=== PATIENT | female | born 1955 | race Caucasian/White ===

== ENCOUNTER 2023-08-26 08:57 | Outpatient (RCR) | payer OTHER, SELFPAY | END 2023-08-26 23:59 | disposition home or self-care (01) | LOC: ROT 08:57 | PROVIDERS: ATTENDING PHYSICIAN Physician Assistant Surgical; FAMILY PHYSICIAN Nurse Practitioner Adult Health | DX: S52.531D Colles' fracture of right radius, subsequent encounter for closed fracture with routine healing (principal); Z73.6 Limitation of activities due to disability | CPT/HCPCS: 97010; 97022; 97110; 97140; 97166; 97535 ==

== ENCOUNTER 2023-09-09 10:02 | Outpatient (RCR) | payer OTHER, SELFPAY | END 2023-09-09 23:59 | disposition home or self-care (01) | LOC: ROT 10:02 | PROVIDERS: ATTENDING PHYSICIAN Physician Assistant Surgical; FAMILY PHYSICIAN Nurse Practitioner Adult Health | DX: S52.531D Colles' fracture of right radius, subsequent encounter for closed fracture with routine healing (principal); Z73.6 Limitation of activities due to disability | CPT/HCPCS: 97022; 97110; 97140 ==

== ENCOUNTER 2023-12-10 04:02 | Emergency (ER) | payer OTHER, SELFPAY ==
[2023-12-10 04:03] VITALS: BP 145/85
[2023-12-10 04:40] VITALS: BMI 26.7
[2023-12-10 04:42] VITALS: BP 121/88
[2023-12-10 04:58] LABS: % Basophils 1.1 % (0-2); % Eosinophils 4.6 % (0-6); % Immature Granulocytes 0.3 % (0-0.5); % Lymphocytes 38.2 % (20.5-51.1); % Neutrophils 47.8 % (42.2-75.2); Absolute Eosinophils 0.2 10^3/uL (0-0.7); Absolute Lymphocytes 1.3 10^3/uL (1.2-3.4); Absolute Monocytes 0.3 10^3/uL (0.1-0.6); Absolute Neutrophils 1.7 10^3/uL (1.4-6.5); Hemoglobin 11.6 g/dL (12.0-16.0); Mean Corp Hgb Conc. 33.1 g/dL (33.0-37.0); Mean Corpuscular Hgb 28.7 pg (27.0-31.0); Mean Corpuscular Volume 86.6 fL (81.0-99.0); Mean Platelet Volume 9.7 fL (7.4-10.4); Nucleated Red Blood Cells % 0 %; Platelet Count 193 10^3/uL (130-400); Red Blood Cell Count 4.04 10^6/uL (4.20-5.40); Red Cell Dist. Width 13.4 % (11.5-14.5); White Blood Cell Count 3.5 10^3/uL (4.8-10.8)
[2023-12-10 05:21] LABS: ALT (SGPT) 19 U/L (0-35); AST (SGOT) 22 U/L (14-36); Albumin 3.3 g/dl (3.5-5.0); Alkaline Phosphatase 90 U/L (38-126); Blood Urea Nitrogen 17 mg/dl (7-17); Calcium 9.9 mg/dl (8.4-10.2); Carbon Dioxide 28 mmol/L (22-30); Chloride 107 mmol/L (98-107); Glucose 89 mg/dl (70-99); Potassium 4.2 mmol/L (3.5-5.1); Sodium 135 mmol/L (135-145); Total Bilirubin 0.3 mg/dl (0.2-1.3); Total Protein 5.6 g/dl (6.3-8.2); eGFR > 60.00
[2023-12-10 05:48] VITALS: BP 112/77
[2023-12-10 06:18] VITALS: BP 110/58
[2023-12-10 07:00] VITALS: BP 117/71
--- NOTE | 2023-12-10 07:12 | ED.GENMED ---
History of Present Illness
General
Chief Complaint: Vaginal Bleeding
Source: patient
Exam Limitations: none
Time Seen by Provider: 12/10/23 06:04
Nursing documentation reviewed up to this point in time: agreed with
Travel History
Have you had any contact with someone who has COVID-19?: No
Do you have any symptoms of coronavirus? Fever > 100 degrees, chills, cough, shortness of breath, sore throat, loss of taste or smell, muscle aches, or headache?: No
History of Present Illness
History of Present Illness:
Patient with history of paroxysmal atrial fibrillation on Eliquis, presents to ED after waking up this morning around 4 AM and when she went to restroom, she noted bright red blood with urination. Since then, patient has gone to the restroom
multiple times, and each time, blood in urine has lessened. Denies abdominal pain. Denies nausea or vomiting. Denies dizziness. Denies shortness of breath. Denies previous history of similar symptoms. Patient has history of hysterectomy 20
years ago secondary to endometriosis. Patient states that she does still have her ovaries intact. Patient states that she had also been taking Celebrex as well as Eliquis, but was discontinued 1 week ago.
Past History
Past History
ED Past Medical History: Hypothyroidism and Psychiatric (lexapro)
ED Past Surgical History: Gynecological and Orthopedic
Social History
Tobacco: Non-smoker
Alcohol: Occasional
Drug: None
Personal:
Living: with family
Employment: Employed
Family History
Family History: Diabetes and Other (Coronary artery disease in her grandmother, atrial fibrillation her mother and sister)
Review of Systems
Review of Systems
Allergies reviewed?: Yes
All Other Systems: ROS reviewed and negative except as documented in HPI and ROS
Constitutional: Reports no symptoms; Denies fatigue
Respiratory: Reports no symptoms
Cardiac: Reports no symptoms
ABD/GI: Reports no symptoms; Denies abdominal pain or nausea
: Reports bleeding
Musculoskeletal: Reports no symptoms
Skin: Reports no symptoms
Neurological: Reports no symptoms; Denies dizzy or weakness
Phy Exam
Physical Exam
Physical Exam:
Physical Exam
General: no apparent distress, not acutely ill. afebrile
Head: nc/at. eomi
Neck: supple. normal range of motion
Abdomen: normal bowel sounds. not tender.
Neuro: alert and oriented. no focal neurological deficits
Skin: no rash
Psychiatric: well kept. interactive and cooperative
Extremities: no edema. no calf tenderness.
Course
Orders/Labs/Results
Orders:
Orders
12/10/23 04:47
CMP [Comprehensive Metabolic Panel] Urgent
Complete Blood Count/With Diff Urgent
12/10/23 06:17
Urinalysis Reflex To Culture Urgent
Date Specimen was Collected: 12/10/23
Time Specimen was Collected: 04:52
Urine Microscopic Reflex Cult Urgent
Urine Culture Urgent
DANAY Source: U
Specimen Description:
Date Specimen was Collected: 12/10/23
Time Specimen was Collected: 04:52
12/10/23 07:09
0.9% Sodium Chloride 500 ml [Nss] 500 ml IV BOLUS
Abnormal Lab Results
12/10/23 12/10/23
04:47 06:17
WBC 3.5 L 10^3/uL
(4.8-10.8)
RBC 4.04 L 10^6/uL
(4.20-5.40)
Hgb 11.6 L g/dL
(12.0-16.0)
Hct 35.0 L %
(37.0-47.0)
Total Protein 5.6 L g/dl
(6.3-8.2)
Albumin 3.3 L g/dl
(3.5-5.0)
Urine Ketones Trace A
(Negative)
Ur Occult Blood Reflex 4+ A
(Negative)
Urine Bilirubin 1+ A
(Negative)
Leukocyte Esterase Rfl 1+ A
(Negative)
Urine RBC 50-60 A /HPF
(0-2)
Urine WBC (Reflex) 16-20 A /HPF
(0-5)
Urine Bacteria (Reflex) Few A
(Negative)
Urine Albumin (Reflex) 1+ A
(Neg - Trace)
12/10/23 04:47
12/10/23 04:47
Vital Signs
Initial and Last Documented VS:
Initial Vital Signs
Temp Pulse Resp BP Pulse Ox
98 F 92 24 145/85 100
12/10/23 04:03 12/10/23 04:03 12/10/23 04:03 12/10/23 04:03 12/10/23 04:03
Last Documented Vital Signs
Temp Pulse Resp BP Pulse Ox
98 F 75 18 115/71 99
12/10/23 04:03 12/10/23 08:27 12/10/23 08:27 12/10/23 08:27 12/10/23 08:27
MDM/Problems Addressed
MDM/Problems Addressed:
H/H stable. Pt reports continual clearance of bloody during observation in ED, without any abdominal discomfort.
Discussed treatment options, including pelvic US. However, patient would like to defer US until re-evaluation with her resource recovery engineer physician, which I believe is reasonable.
UA noted and discussed with patient. As pt is not susceptible to UTI nor having any urinary complaints, will withhold abx until urine cx becomes available.
Pt given precautions to return, i.e. fever/worsening bleeding/dizziness/weakness
*Critical Care Note
Total Time (30-74mins, 75-104mins- exclusive of procedures): Not Applicable
ED Attending Note
-
Portions of this chart may have been created with voice recognition software.� Occasional wrong word or��sound alike� substitutions may have occurred due to the inherent limitations of voice recognition software.
Discharge Plan
Departure
Patient Disposition: Home (Routine Discharge)
Date of Disposition: 12/10/23
Time of Disposition: 08:00
Patient with high blood pressure during this ER visit?: Yes
Condition: Good
Discharge Problem:
Abnormal vaginal bleeding
Instructions: Bleeding Between Periods
Prescriptions:
No Action
escitalopram oxalate 20 MG tablet
10 mg PO HS
cyanocobalamin (vitamin B-12) [Vitamin B-12] 500 MCG tablet
1,000 mcg PO DAILY@1200
cholecalciferol (vitamin D3) 1,000 UNITS tablet
1,000 units PO DAILY@1200
liothyronine 5 MICROGRAM tablet
5 mcg PO DAILY
levothyroxine 25 MCG tablet
50 mcg PO DAILY
Eliquis 5 MG tablet
5 mg PO BID Qty: 60 0RF
cetirizine [Zyrtec] 5 MG tablet
5 mg PO DAILY
magnesium citrate 125 MG capsule
250 mg PO HS
nadolol 20 mg Tablet
20 mg PO DAILY
rosuvastatin [Crestor] 10 mg Tablet
10 mg PO HS
polyethylene glycol 3350 [Miralax] 17 gram Powder In Packet
17 g PO HS
Wegovy 0.25 mg/0.5 mL Pen Injector
0.25 mg SC QWEEK
Referrals:
Kira Root CRNP [Family Provider] -
Activity Restrictions/Additional Instructions:
As discussed, please follow up with your resource recovery engineer physician for further evaluation and treatment. In the meantime, please withhold Eliquis x 24 hrs. Please return to ED with worsening symptoms, i.e. fever/increased bleeding/dizziness/weakness/sob.
Interventions
Interventions:
*Risk Screen - Suicide Last Done: 12/10/23 04:03
*General Assessment Last Done: 12/10/23 04:40
*Neglect/Abuse Screening Last Done: 12/10/23 04:03
ED- Fall Risk Assessment Last Done: 12/10/23 04:40
*ED COVID-19 Vaccine History Last Done: 12/10/23 04:40
*Nursing Disposition Last Done: 12/10/23 08:32
ED-Female Genitourinary Assessment Last Done: 12/10/23 04:40
Discharge Date and Time
Discharge Date/Time: 12/10/23 08:40
Print Language: PASHTO
[2023-12-10 07:24] LABS: Urine Albumin 1+ (Neg - Trace); Urine Bilirubin 1+ (Negative); Urine Character Very Cloudy (Clear); Urine Color Amber; Urine Glucose Negative (Negative); Urine Ketone Trace (Negative); Urine Leukocyte 1+ (Negative); Urine Nitrite Negative (Negative); Urine Occult Blood 4+ (Negative); Urine Specific Gravity 1.015 (<1.030); Urine Urobilinogen Negative (Neg - 1+)
[2023-12-10 07:45] LABS: Urine Squamous Cell 0-2 /LPF (Few)
[2023-12-10 07:46] LABS: Urine Bacteria Few (Negative)
[2023-12-10 07:48] LABS: Urine White Cell 16-20 /HPF (0-5)
[2023-12-10 07:50] LABS: Urine Red Blood Cell 50-60 /HPF (0-2)
[2023-12-10 08:27] VITALS: BP 115/71
== END 2023-12-10 08:40 | disposition home or self-care (01) ==
LOC: EMR 04:02
PROVIDERS: Emergency Medicine; EMERGENCY PHYSICIAN Emergency Medicine; FAMILY PHYSICIAN Nurse Practitioner Adult Health
DX: N93.9 Abnormal uterine and vaginal bleeding, unspecified (principal); R03.0 Elevated blood-pressure reading, without diagnosis of hypertension; Z79.01 Long term (current) use of anticoagulants
CPT/HCPCS: 99283; 80053; 81003; 81015; 85025; 87086

== ENCOUNTER 2024-04-01 18:57 | Emergency (ER) | payer OTHER, SELFPAY ==
[2024-04-01 19:06] VITALS: BP 118/78
[2024-04-01 21:09] VITALS: BP 107/84
--- NOTE | 2024-04-02 00:32 | ED.GENMED ---
History of Present Illness
General
Chief Complaint: Head Injury
Source: patient
Exam Limitations: none
Time Seen by Provider: 04/01/24 20:15
Nursing documentation reviewed up to this point in time: agreed with
History of Present Illness
History of Present Illness:
Patient states a cable box fell and hit her on the back of the head. No LOC. Developed a hematoma to posterior scalp. Currently on Eliquis. Brought to ED by spouse for eval.
Past History
Past History
ED Past Medical History: Hypothyroidism and Psychiatric (lexapro)
ED Past Surgical History: Gynecological and Orthopedic
Social History
Tobacco: Non-smoker
Alcohol: Occasional
Drug: None
Personal:
Living: with family
Employment: Employed
Family History
Family History: Diabetes and Other (Coronary artery disease in her grandmother, atrial fibrillation her mother and sister)
Review of Systems
Review of Systems
Allergies reviewed?: Yes
All Other Systems: ROS reviewed and negative except as documented in HPI and ROS
Constitutional: Reports no symptoms
EENT: Reports no symptoms
Respiratory: Reports no symptoms
Cardiac: Reports no symptoms
ABD/GI: Reports no symptoms
Musculoskeletal: Reports no symptoms
Skin: Reports other (small hematoma to posterior scalp)
Neurological: Reports headache
Psychiatric: Reports no symptoms
Phy Exam
General Physical Exam
General Presentation: well appearing and no apparent distress
General age: appears stated age
General Skin: warm and dry
General Habitus: normal
General Mental: alert
ENT Exam
ENT Exam: EOMI and TM's normal
Eye Exam
Eye Exam: PERRL, EOMI, conjunctiva normal and globe normal
Neurological Exam
Neurological Exam: alert, oriented x3, no motor deficits, no sensory deficits, speech normal and normal gait
Musculoskeletal Exam
Musculoskeletal Exam: full ROM
Skin Exam
Skin Exam: normal color, warm/dry, no rash and other (small hematoma to posterior scalp.)
Psychiatric Exam
Psychiatric Exam: normal mood/affect
Course
Orders/Labs/Results
Orders:
Orders
04/01/24 19:08
CT Head W/o Iv Contrast Urgent
Comment:
Reason For Exam: head strike on eliquis
Vital Signs
Initial and Last Documented VS:
Initial Vital Signs
Temp Pulse Resp BP Pulse Ox
98.2 F 97 18 118/78 97
04/01/24 19:06 04/01/24 19:06 04/01/24 19:06 04/01/24 19:06 04/01/24 19:06
Last Documented Vital Signs
Temp Pulse Resp BP Pulse Ox
98.2 F 78 18 107/84 97
04/01/24 19:06 04/01/24 21:09 04/01/24 21:09 04/01/24 21:09 04/01/24 19:06
*Radiology
Radiology exam reviewed: radiology read reviewed
*Pulse Oximetry
Patient hypoxic: no
*Critical Care Note
Total Time (30-74mins, 75-104mins- exclusive of procedures): Not Applicable
ED Attending Note
-
Portions of this chart may have been created with voice recognition software.� Occasional wrong word or��sound alike� substitutions may have occurred due to the inherent limitations of voice recognition software.
Discharge Plan
Departure
Patient Disposition: Home (Routine Discharge)
Date of Disposition: 04/01/24
Time of Disposition: 20:54
Patient with high blood pressure during this ER visit?: No
Condition: Good
Covid-19: Not Applicable
Discharge Problem:
Head injury
Instructions: Head Injury in Adults (DC), Contusion (DC)
Prescriptions:
No Action
escitalopram oxalate 20 MG tablet
10 mg PO HS
cyanocobalamin (vitamin B-12) [Vitamin B-12] 500 MCG tablet
1,000 mcg PO DAILY@1200
cholecalciferol (vitamin D3) 1,000 UNITS tablet
1,000 units PO DAILY@1200
liothyronine 5 MICROGRAM tablet
5 mcg PO DAILY
levothyroxine 25 MCG tablet
50 mcg PO DAILY
Eliquis 5 MG tablet
5 mg PO BID Qty: 60 0RF
cetirizine [Zyrtec] 5 MG tablet
5 mg PO DAILY
magnesium citrate 125 MG capsule
250 mg PO HS
nadolol 20 mg Tablet
20 mg PO DAILY
rosuvastatin [Crestor] 10 mg Tablet
10 mg PO HS
polyethylene glycol 3350 [Miralax] 17 gram Powder In Packet
17 g PO HS
Wegovy 0.25 mg/0.5 mL Pen Injector
0.25 mg SC QWEEK
Referrals:
Kira Root CRNP [Family Provider] - Follow up in 2-3 days
Interventions
Interventions:
*Risk Screen - Suicide Last Done: 04/01/24 19:06
*General Assessment Last Done: 04/01/24 19:06
*Neglect/Abuse Screening Last Done: 04/01/24 19:06
ED- Fall Risk Assessment Last Done: 04/01/24 21:09
*ED COVID-19 Vaccine History Last Done: 04/01/24 21:09
*Nursing Disposition Last Done: 04/01/24 21:09
ED- Neurological Assessment Last Done: 04/01/24 20:05
ED-Skin Assessment Last Done: 04/01/24 20:05
Discharge Date and Time
Discharge Date/Time: 04/01/24 21:12
Print Language: SYRIAC
== END 2024-04-01 21:12 | disposition home or self-care (01) ==
LOC: EMR 18:57
PROVIDERS: EMERGENCY PHYSICIAN Emergency Medicine; FAMILY PHYSICIAN Nurse Practitioner Adult Health
DX: S09.90XA Unspecified injury of head, initial encounter (principal); W20.8XXA Other cause of strike by thrown, projected or falling object, initial encounter; Z79.01 Long term (current) use of anticoagulants
CPT/HCPCS: 99284; 70450

== ENCOUNTER → 2024-07-27 11:15 | Outpatient (REF) | payer OTHER, SELFPAY | LOC: WDC 11:15 | PROVIDERS: ATTENDING PHYSICIAN Nurse Practitioner Adult Health | DX: Z12.31 Encounter for screening mammogram for malignant neoplasm of breast (principal) | CPT/HCPCS: 77063; 77067 ==

== ENCOUNTER → 2025-01-18 12:50 | Outpatient (REF) | payer OTHER, SELFPAY | LOC: RCS 12:50 | PROVIDERS: ATTENDING PHYSICIAN Nurse Practitioner | DX: I48.0 Paroxysmal atrial fibrillation (principal); R07.89 Other chest pain; R53.83 Other fatigue | CPT/HCPCS: 93017 ==

== ENCOUNTER → 2025-01-27 08:07 | Outpatient (REF) | payer OTHER, SELFPAY | LOC: RCS 08:07 | PROVIDERS: ATTENDING PHYSICIAN Nurse Practitioner; FAMILY PHYSICIAN Nurse Practitioner Adult Health | DX: I48.0 Paroxysmal atrial fibrillation (principal); R07.89 Other chest pain; R53.83 Other fatigue | CPT/HCPCS: 93306 ==

== ENCOUNTER → 2025-03-01 12:52 | Outpatient (REF) | payer OTHER, SELFPAY | LOC: RAD 12:52 | PROVIDERS: ATTENDING PHYSICIAN Internal Medicine; FAMILY PHYSICIAN Nurse Practitioner Adult Health | DX: E21.3 Hyperparathyroidism, unspecified (principal); E03.9 Hypothyroidism, unspecified; M81.0 Age-related osteoporosis without current pathological fracture | CPT/HCPCS: 77080 ==

== ENCOUNTER 2025-06-19 18:26 | Emergency (ER) | payer OTHER, SELFPAY ==
[2025-06-19 18:28] VITALS: BP 149/89
--- NOTE | 2025-06-19 18:53 | ED.GENMED ---
History of Present Illness
General
Chief Complaint: Abdominal Symptoms
Source: patient and spouse
Time Seen by Provider: 06/19/25 18:42
History of Present Illness
History of Present Illness:
Note:
CHIEF COMPLAINT(S)
Dehydration and migraine headache secondary to vomiting.
HISTORY OF PRESENT ILLNESS
The patient is a 70-year-old female with a past medical history significant for bariatric surgery and multiple orthopedic surgeries. She presents with severe dehydration and a migraine headache following episodes of vomiting and diarrhea. The onset
of symptoms began recently, initially starting with stomach cramping. The patient reports that her tongue feels enlarged and her mouth has been exceedingly dry. She describes her migraine as a result of continuous vomiting.
The patient mentions that her granddaughter recently experienced similar symptoms but has not confirmed if it was the same illness. She denies eating anything unusual or being around anyone unwell, aside from her granddaughter. The patient notes
significant nausea and describes pain in the lower abdominal region upon palpation, along with the sensation that vomiting involves expelling gastric lining. She denies hematochezia or hematemesis but indicates experiencing both vomiting and
diarrhea.
PAST MEDICAL AND SURGICAL HISTORY
The patient has a history of bariatric surgery performed four years ago and has undergone four hip replacement surgeries in the past. She also suffers from asthma.
SOCIAL DETERMINANTS AFFECTING HEALTH
The patient mentions feeling �like a wet rag or something� and expresses concern about hydration.
ALLERGIES
The patient is allergic to procaine and sulfa-based drugs.
MEDICATIONS
The patient has taken Ondansetron for nausea.
REVIEW OF SYSTEMS
- Gastrointestinal: Significant nausea, vomiting, and diarrhea. Abdominal cramping noted.
- Neurological: Migraine headache reported.
- Constitutional: Dehydrated mouth, enlarged tongue sensation.
PHYSICAL EXAM
General: Alert, no acute distress.
Skin: Warm, dry.
Head: Normocephalic, atraumatic.
Neck: Supple, trachea midline.
Cardiovascular: Normal peripheral perfusion, no edema.
Respiratory: Respirations are non-labored.
Gastrointestinal: mild diffuse Abdominal tenderness; nausea and cramps present.
Back: Normal range of motion, normal alignment.
Musculoskeletal: Normal range of motion, normal strength.
Neurological: Alert and oriented to person, place, time, and situation, no focal neurological deficit observed.
Psychiatric: Cooperative, appropriate mood and affect.
PROBLEM LIST
Acute:
- Dehydration
- Migraine headache
- Nausea and vomiting
- Diarrhea
Chronic:
- Asthma
PLAN
The plan includes administering intravenous fluids to address dehydration and administering medications including metoclopramide (Reglan) in conjunction with diphenhydramine (Benadryl) to address both nausea and migraine symptoms. Laboratory studies
will be conducted to assess electrolyte status, focusing on potassium levels. The patient will be reassessed following these interventions to ensure symptom relief and improvement of hydration status.
DIFFERENTIAL DIAGNOSIS
The Differential Diagnosis includes, in no particular order and is not limited to:
- Viral gastroenteritis
- Food poisoning
- Medication-induced gastrointestinal upset
- Irritable bowel syndrome exacerbation
- Peptic ulcer disease
- Migraine-induced nausea and vomiting
- Gallbladder disease
- Gastroesophageal reflux disease
- Intestinal obstruction
- Electrolyte imbalance
CARE-UPDATE
06/19/25 - 23:35
Patient received two liters of IV fluids and reports feeling significantly better while now tolerating ice chips. Mild abdominal cramping persists. IV Tylenol has been administered, with plans for reassessment. Patient remains slightly tachycardic
at a heart rate of 115, though blood pressure is stable. There are no reported palpitations, and the patient expresses overall improvement. Monitoring will continue.
Disposition:
SUMMARY OF ENCOUNTER
The patient is a 70-year-old female who presented to the emergency department with severe dehydration, associated with intractable vomiting and diarrhea. Initially, she felt significantly dehydrated and complained of persistent gastrointestinal
symptoms. After the administration of two liters of intravenous fluids, her condition showed considerable improvement. The vomiting resolved, and she started tolerating ice chips and oral liquid intake. Mild intermittent abdominal cramping remains,
but overall her symptoms have reduced significantly. Considering the clinical presentation of diarrhea and vomiting, gastroenteritis was suspected.
EMERGENCY TREATMENTS ADMINISTERED
The patient was administered two liters of intravenous fluids to address dehydration.
REASSESSMENT
After treatment with IV fluids, the patient reported feeling much improved with resolved vomiting and stable oral liquid intake. Abdominal symptoms improved, with occasional mild cramping remaining.
INDEPENDENT REVIEW OF LABS AND INTERPRETATION OF TESTS
My independent review of CBC indicates normal white blood cells and hemoglobin levels.
My independent review of urinalysis shows 3+ ketones and 11-15 white cells, with negative nitrite.
My independent EKG interpretation indicates sinus tachycardia, with normal sinus rhythm observed despite the history of atrial fibrillation, fluctuating heart rate between 90 to 110 bpm.
MEDICATION RECONCILIATION
Ondansetron administered for nausea.
MEDICAL DECISION MAKING
-Complexity of Data Reviewed: Chronic conditions affecting care [Atrial fibrillation, Asthma, Bariatric surgery, Multiple orthopedic surgeries]. The differential diagnosis included viral gastroenteritis, food poisoning, medication-induced
gastrointestinal upset, irritable bowel syndrome exacerbation, peptic ulcer disease, migraine-induced nausea and vomiting, gallbladder disease, gastroesophageal reflux disease, intestinal obstruction, and electrolyte imbalance.
-Data:
Category 1:
I independently reviewed the patients CBC and urinalysis results.
An EKG was performed and interpreted to show sinus tachycardia.
-Risk:
Escalation of care including admission/observation was considered given the complexity and risk of the patients presenting complaint, exam findings, and her underlying comorbidities. However, ultimately the patient is deemed safe for outpatient
management with close follow up. The work-up is reassuring, does not reveal any acute life/organ threatening processes, and the patients symptoms are well controlled upon reevaluation. Reexamination is reassuring, vitals are stable, and the patient
is agreeable with discharge and reliable for follow-up.
DIAGNOSIS
Gastroenteritis (ICD-10: A09)
Past History
Past History
ED Past Medical History: Hypothyroidism and Psychiatric (lexapro)
ED Past Surgical History: Gynecological and Orthopedic
Social History
Tobacco: Non-smoker
Alcohol: Occasional
Drug: None
Personal:
Living: with family
Employment: Employed
Family History
Family History: Diabetes and Other (Coronary artery disease in her grandmother, atrial fibrillation her mother and sister)
Phy Exam
Physical Exam
Physical Exam:
.
Sepsis
Sepsis Screening
Sepsis Assessment: Sepsis Ruled Out
Sepsis Screen
Sepsis Screen: Sepsis Ruled Out
Date: 06/20/25
Time: 02:43
Course
Orders/Labs/Results
Orders:
Orders
06/19/25 18:49
0.9% Sodium Chloride 1000 ml [Nss] 1,000 ml IV BOLUS
Diphenhydramine [Benadryl] 25 mg IV NOW STA
Metoclopramide [Reglan] 10 mg IV NOW STA
06/19/25 19:19
Complete Blood Count/With Diff Urgent
Comprehensive Metabolic Panel Urgent
06/19/25 20:28
Urinalysis Reflex To Culture Urgent
Date Specimen was Collected: 06/19/25
Time Specimen was Collected: 20:23
Urine Microscopic Reflex Cult Urgent
Urine Culture Urgent
DANAY Source: U
Specimen Description:
Date Specimen was Collected: 06/19/25
Time Specimen was Collected: 20:23
06/19/25 22:41
Acetaminophen 1000MG/100Ml [Ofirmev] 1,000 mg in 100 ml IV ONCE
Acetaminophen IV Indication:: ED Narcotic Naive Pt-ONCE
06/19/25 23:04
Electrocardiogram (*1) Urgent
Reason for Study: Palpitations
EKG- Treatment ONCE
Abnormal Lab Results
06/19/25 06/19/25
19:19 20:28
MCHC 32.9 L g/dL
(33.0-37.0)
Absolute Neuts (auto) 6.7 H 10^3/uL
(1.4-6.5)
Absolute Lymphs (auto) 0.6 L 10^3/uL
(1.2-3.4)
Neutrophils % 88.0 H %
(42.2-75.2)
Lymphocytes % 8.4 L %
(20.5-51.1)
Glucose 109 H mg/dl
(70-99)
Urine Ketones 3+ A
(Negative)
Leukocyte Esterase Rfl 2+ A
(Negative)
Urine WBC (Reflex) 11-15 A /HPF
(0-5)
Urine Albumin (Reflex) 2+ A
(Neg - Trace)
06/19/25 19:19
06/19/25 19:19
Vital Signs
Pulse: 91
Initial and Last Documented VS:
Initial Vital Signs
Pulse Resp BP Pulse Ox
111 20 149/89 99
06/19/25 18:28 06/19/25 18:28 06/19/25 18:28 06/19/25 18:28
Last Documented Vital Signs
Temp Pulse Resp BP Pulse Ox
97.8 F 91 19 110/68 95
06/20/25 01:24 06/20/25 01:10 06/20/25 01:00 06/20/25 01:00 06/20/25 00:30
*Pulse Oximetry
SaO2: 99
Oxygen Mode of Delivery: Room air
Patient hypoxic: no
*Critical Care Note
Total Time (30-74mins, 75-104mins- exclusive of procedures): Not Applicable
ED Attending Note
-
Portions of this chart may have been created with voice recognition software.� Occasional wrong word or��sound alike� substitutions may have occurred due to the inherent limitations of voice recognition software.
Discharge Plan
Departure
Patient Disposition: Home (Routine Discharge)
Date of Disposition: 06/20/25
Time of Disposition: 01:10
Patient with high blood pressure during this ER visit?: No
Discharge Problem:
Vomiting, Diarrhea
Instructions: Diarrhea in teens and adults, Clear Liquid Diet, Dehydration, Adult (DC), Nausea and Vomiting, Adult (DC)
Prescriptions:
New
ondansetron HCl 4 mg tablet
4 mg PO Q8H PRN (Reason: nausea and vomiting) Qty: 14 0RF
No Action
escitalopram oxalate 20 MG tablet
10 mg PO HS
cyanocobalamin (vitamin B-12) [Vitamin B-12] 500 MCG tablet
1,000 mcg PO DAILY@1200
cholecalciferol (vitamin D3) 1,000 UNITS tablet
1,000 units PO DAILY@1200
liothyronine 5 MICROGRAM tablet
5 mcg PO DAILY
levothyroxine 25 MCG tablet
50 mcg PO DAILY
Eliquis 5 MG tablet
5 mg PO BID Qty: 60 0RF
cetirizine [Zyrtec] 5 MG tablet
5 mg PO DAILY
magnesium citrate 125 MG capsule
250 mg PO HS
nadolol 20 mg Tablet
20 mg PO DAILY
rosuvastatin [Crestor] 10 mg Tablet
10 mg PO HS
polyethylene glycol 3350 [Miralax] 17 gram Powder In Packet
17 g PO HS
Wegovy 0.25 mg/0.5 mL Pen Injector
0.25 mg SC QWEEK
Referrals:
Kira Root CRNP [Family Provider, Internal Medicine]
Activity Restrictions/Additional Instructions:
Please drink plenty fluids and advance diet slowly as discussed. Return immediately for vomiting blood, blood in stool, abdominal pain, fevers or any other concerns. Use Tylenol as needed for fever control. Please see your doctor in the next 3 to
5 days for follow-up and reevaluation.
Interventions
Interventions:
*Risk Screen - Suicide Last Done: 06/19/25 20:00
*General Assessment Last Done: 06/19/25 19:00
*Neglect/Abuse Screening Last Done: 06/19/25 20:00
*ED- Fall Risk Assessment Last Done: 06/19/25 19:00
*ED COVID-19 Vaccine History Last Done: 06/19/25 19:00
*ED Influenza Vaccine History Last Done: 06/19/25 19:00
*Nursing Disposition Last Done: 06/20/25 01:24
PL-Cjatid-Wupevrtmxq Assessment Last Done: 06/19/25 20:00
Discharge Date and Time
Discharge Date/Time: 06/20/25 01:27
Print Language: WELSH
[2025-06-19 19:00] VITALS: BMI 25.1
[2025-06-19] MEDS: BENADRYL 25 MG IV (19:06)
[2025-06-19] MEDS: REGLAN 10 MG IV (19:07)
[2025-06-19] MEDS: NSS 1000 IV (19:07)
[2025-06-19 19:31] LABS: Hematocrit 42.0 % (37.0-47.0); Hemoglobin 13.8 g/dL (12.0-16.0); Mean Corp Hgb Conc. 32.9 g/dL (33.0-37.0); Mean Corpuscular Volume 86.6 fL (81.0-99.0); Nucleated Red Blood Cells % 0 %; Platelet Count 236 10^3/uL (130-400); Red Cell Dist. Width 13.2 % (11.5-14.5)
[2025-06-19 19:47] LABS: ALT (SGPT) 20 U/L (0-35); AST (SGOT) 22 U/L (14-36); Albumin 4.0 g/dl (3.5-5.0); Alkaline Phosphatase 71 U/L (38-126); Blood Urea Nitrogen 13 mg/dl (7-17); Calcium 10.0 mg/dl (8.4-10.2); Carbon Dioxide 25 mmol/L (22-30); Chloride 104 mmol/L (98-107); Estimated Creatinine Clearance 63 ml/min; Glucose 109 mg/dl (70-99); Potassium 4.6 mmol/L (3.5-5.1); Sodium 136 mmol/L (135-145); Total Protein 6.5 g/dl (6.3-8.2); eGFR > 60.00
[2025-06-19 20:37] LABS: Urine Character Slightly Cloudy (Clear)
[2025-06-19 20:52] LABS: Urine Red Blood Cell 0-2 /HPF (0-2)
[2025-06-19 21:00] VITALS: BP 121/72
[2025-06-19 22:00] VITALS: BP 122/82
[2025-06-19] MEDS: OFIRMEV 100 IV (22:58)
[2025-06-19 23:00] VITALS: BP 113/72
[2025-06-20] VITALS: BP 121/76
[2025-06-20 01:00] VITALS: BP 110/68
== END 2025-06-20 01:27 | disposition home or self-care (01) ==
LOC: EMR 18:26
PROVIDERS: EMERGENCY PHYSICIAN Emergency Medicine; FAMILY PHYSICIAN Nurse Practitioner Adult Health
DX: R11.10 Vomiting, unspecified (principal); R19.7 Diarrhea, unspecified; E86.0 Dehydration; I48.91 Unspecified atrial fibrillation; J45.909 Unspecified asthma, uncomplicated; E03.9 Hypothyroidism, unspecified; Z88.2 Allergy status to sulfonamides; Z98.84 Bariatric surgery status; Z96.649 Presence of unspecified artificial hip joint; Z82.49 Family history of ischemic heart disease and other diseases of the circulatory system
CPT/HCPCS: 99284; 96374; 96375; 96361; 80053; 81003; 81015; 85025; 87086; 93005

== ENCOUNTER 2025-06-21 18:19 | Inpatient (IN) | payer OTHER, SELFPAY ==
[2025-06-21] VITALS (8 sets, daily range): BP systolic 105–134; BP diastolic 67–85; BMI 25.4
--- NOTE | 2025-06-21 14:49 | ED.GENMED ---
History of Present Illness
<Eric Velasquez MD, Resident - Last Filed: 06/21/25 15:43>
General
Chief Complaint: Abdominal Symptoms
Source: patient and family
Exam Limitations: none
Time Seen by Provider: 06/21/25 14:29
History of Present Illness
History of Present Illness:
Patient is a 70-year-old female with past medical history significant for bariatric surgery (on GLP), multiple partial small bowel obstructions, multiple orthopedic surgeries, hysterectomy, atrial fibrillation, coronary artery disease who was
recently discharged from the ED, she was here for gastroenteritis., As per the patient, she was in her usual state of health 2 days ago, she went out for lunch on Saturday, had Caesar salad with a fishy smelling dressing. She came home and felt a bit
off and started having multiple episode of vomiting and loose stools associated with abdominal pain.
Abdominal pain is diffuse mostly in lower quadrant.
She came to the ER on Saturday, blood work looked fine and after fluid resuscitation, Benadryl and ondansetron dose she felt fine and was discharged home.
Patient presents today with unresolving symptoms, persistent vomiting and diarrhea, unable to keep anything down and has not been able to take her A-fib medications. She felt palpitations in her chest and has been having chills for which she came
to the ER.
She is unable to keep anything down except for Pedialyte and some ice chips.
Denies any fever, blood or mucus in stools.
Past History
<Eric Velasquez MD, Resident - Last Filed: 06/21/25 15:43>
Past History
ED Past Medical History: Hypothyroidism and Psychiatric (lexapro)
ED Past Surgical History: Gynecological and Orthopedic
Social History
Tobacco: Non-smoker
Alcohol: Occasional
Drug: None
Personal:
Living: with family
Employment: Employed
Family History
Family History: Diabetes and Other (Coronary artery disease in her grandmother, atrial fibrillation her mother and sister)
Review of Systems
<Eric Velasquez MD, Resident - Last Filed: 06/21/25 15:43>
Review of Systems
All Other Systems: ROS reviewed and negative except as documented in HPI and ROS
ABD/GI: Reports abdominal pain, nausea, vomiting and diarrhea
Phy Exam
<Eric Velasquez MD, Resident - Last Filed: 06/21/25 15:43>
General Physical Exam
General Presentation: moderate distress
General Skin: warm, dry and pale
General Mental: alert
General Hydration: dry mucous membranes
Cardiovascular Exam
Cardiovascular Exam: no murmur and tachycardia
Pulmonary Exam
Pulmonary Exam: lungs clear
Gastrointestinal Exam
Gastrointestinal Exam: soft and tender (Diffuse abdominal tenderness mostly lower quadrants)
Neurological Exam
Neurological Exam: alert, oriented x3, no motor deficits and speech normal
Course
<Eric Velasquez MD, Resident - Last Filed: 06/21/25 15:43>
Orders/Labs/Results
Orders:
Orders
06/21/25 14:46
Lactated Ringers [Lr] 500 ml IV BOLUS
06/21/25 14:48
Ondansetron Injectable [Zofran] 4 mg IV NOW ONE
06/21/25 14:58
EKG- Treatment ONCE
06/21/25 15:05
Complete Blood Count/With Diff Urgent
Comprehensive Metabolic Panel Urgent
Lipase Urgent
Manual Differential Urgent
06/21/25 15:06
EKG [Electrocardiogram (*1)] Stat
Reason for Study: Atrial Fibrillation
06/21/25 15:07
CT Abd/pelvis W Iv Cont Urgent
Comment:
Reason For Exam: low abdominal pain, vomiting
06/21/25 15:20
Lactated Ringers [Lr] 500 ml IV BOLUS
06/21/25 15:25
STOOL [C difficile Antigen & Toxins] Stat
DANAY Source: Feces/Stool
Specimen Description:
Stool Culture Stat
DANAY Source: Feces/Stool
Specimen Description:
Stool For WBC Stat
DANAY Source: Feces/Stool
Specimen Description:
06/21/25 17:45
Lactated Ringers 500mL Bolus Lactated Ringers [Lr] 500 ml IV BOLUS
Abnormal Lab Results
06/21/25
15:05
WBC 2.6 L 10^3/uL
(4.8-10.8)
MCHC 32.4 L g/dL
(33.0-37.0)
Abs Neuts (Manual) 1.3 L 10^3/uL
(1.4-6.5)
Segmented Neutrophils 41 L %
(42-75)
Band Neutrophils 11 H %
(0-3)
Lymphocytes (Manual) 16 L %
(20-51)
Monocytes (Manual) 29 H %
(2-9)
Sodium 133 L mmol/L
(135-145)
Glucose 102 H mg/dl
(70-99)
Total Protein 5.6 L g/dl
(6.3-8.2)
Albumin 3.2 L g/dl
(3.5-5.0)
06/21/25 15:05
06/21/25 15:05
Vital Signs
Initial and Last Documented VS:
Initial Vital Signs
Temp Pulse Resp BP Pulse Ox
98.2 F 99 22 132/85 98
06/21/25 13:25 06/21/25 13:25 06/21/25 13:25 06/21/25 13:25 06/21/25 13:25
Last Documented Vital Signs
Temp Pulse Resp BP Pulse Ox
98.2 F 116 18 105/69 96
06/21/25 13:25 06/21/25 17:00 06/21/25 17:00 06/21/25 17:15 06/21/25 17:00
<Qiana Maxwell MD - Last Filed: 06/21/25 17:47>
Orders/Labs/Results
Orders:
Orders
06/21/25 14:46
Lactated Ringers [Lr] 500 ml IV BOLUS
06/21/25 14:48
Ondansetron Injectable [Zofran] 4 mg IV NOW ONE
06/21/25 14:58
EKG- Treatment ONCE
06/21/25 15:05
Complete Blood Count/With Diff Urgent
Comprehensive Metabolic Panel Urgent
Lipase Urgent
Manual Differential Urgent
06/21/25 15:06
EKG [Electrocardiogram (*1)] Stat
Reason for Study: Atrial Fibrillation
06/21/25 15:07
CT Abd/pelvis W Iv Cont Urgent
Comment:
Reason For Exam: low abdominal pain, vomiting
06/21/25 15:20
Lactated Ringers [Lr] 500 ml IV BOLUS
06/21/25 15:25
STOOL [C difficile Antigen & Toxins] Stat
DANAY Source: Feces/Stool
Specimen Description:
Stool Culture Stat
DANAY Source: Feces/Stool
Specimen Description:
Stool For WBC Stat
DANAY Source: Feces/Stool
Specimen Description:
06/21/25 17:45
Lactated Ringers 500mL Bolus Lactated Ringers [Lr] 500 ml IV BOLUS
Abnormal Lab Results
06/21/25
15:05
WBC 2.6 L 10^3/uL
(4.8-10.8)
MCHC 32.4 L g/dL
(33.0-37.0)
Abs Neuts (Manual) 1.3 L 10^3/uL
(1.4-6.5)
Segmented Neutrophils 41 L %
(42-75)
Band Neutrophils 11 H %
(0-3)
Lymphocytes (Manual) 16 L %
(20-51)
Monocytes (Manual) 29 H %
(2-9)
Sodium 133 L mmol/L
(135-145)
Glucose 102 H mg/dl
(70-99)
Total Protein 5.6 L g/dl
(6.3-8.2)
Albumin 3.2 L g/dl
(3.5-5.0)
06/21/25 15:05
06/21/25 15:05
Vital Signs
Initial and Last Documented VS:
Initial Vital Signs
Temp Pulse Resp BP Pulse Ox
98.2 F 99 22 132/85 98
06/21/25 13:25 06/21/25 13:25 06/21/25 13:25 06/21/25 13:25 06/21/25 13:25
Last Documented Vital Signs
Temp Pulse Resp BP Pulse Ox
98.2 F 116 18 105/69 96
06/21/25 13:25 06/21/25 17:00 06/21/25 17:00 06/21/25 17:15 06/21/25 17:00
<Eric Velasquez MD, Resident - Last Filed: 06/21/25 15:43>
MDM/Problems Addressed
Differential Diagnosis Includes:
Dehydration
Palpitations
Intractable nausea and vomiting
Watery diarrhea
MDM/Problems Addressed:
Impression
Patient is a 70-year-old female who presented with persistent symptoms of gastroenteritis. Unable to keep anything down including her medications. Second visit to the ER for similar symptoms.
Plan
Rehydrate the patient
Appropriate antiemetics
Blood work including CBC and CMP to look for electrolyte derangements
Stool culture
CT abdomen/pelvis
EKG for A-fib evaluation
Chest
<Eric Velasquez MD, Resident - Last Filed: 06/21/25 15:43>
*Pulse Oximetry
SaO2: 98
Oxygen Mode of Delivery: Room air
*Critical Care Note
Total Time (30-74mins, 75-104mins- exclusive of procedures): Not Applicable
<Qiana Maxwell MD - Last Filed: 06/21/25 17:47>
*Radiology
Radiology exam reviewed: radiology read reviewed
*Pulse Oximetry
Patient hypoxic: no
*EKG
Interpreted by ED Provider?: Yes
Interpretation: abnormal
Comparison EKG: no comparison EKG present
Rate: tachycardiac
Rhythm: sinus
[place]: normal axis
Interval: normal interval
QRS Pattern: normal QRS
Ischemia: non-specific ST changes
*[facility] Interpretation
Rate: tachycardiac
Interpretation: abnormal
Rhythm: sinus
Data Reviewed
Source: patient
<Qiana Maxwell MD - Last Filed: 06/21/25 17:47>
Patient Management
Social determinants of health affecting care: Living situation
Discussion with other providers: Hospitalist and Other (Dr. Torres made aware of patient's admission via [place] text)
ED Attending Note
<Eric Velasquez MD, Resident - Last Filed: 06/21/25 15:43>
-
Portions of this chart may have been created with voice recognition software.� Occasional wrong word or��sound alike� substitutions may have occurred due to the inherent limitations of voice recognition software.
<Qiana Maxwell MD - Last Filed: 06/21/25 17:47>
ED Attending Note
I performed a history and physical exam of patient and discussed management with resident, I reviewed resident's note and agree with documented findings and plan of care.: Yes
ED Attending Note:
Patient is breathing comfortably. Abdomen is soft throughout. Patient has lower abdominal tenderness without rebound or guarding. Patient has normal bowel sounds.
Discharge Plan
Departure
Patient Disposition: Admit
Date of Disposition: 06/21/25
Time of Disposition: 17:20
Admit to: Med/Surg
Presentation/result/management discussed w/ accepting MD/DO: Hospitalist
Patient with high blood pressure during this ER visit?: No
Condition: Good
Covid-19: Not Applicable
Discharge Problem:
acute ileus, Intractable nausea and vomiting
Prescriptions:
No Action
escitalopram oxalate 20 MG tablet
10 mg PO HS
cyanocobalamin (vitamin B-12) [Vitamin B-12] 500 MCG tablet
1,000 mcg PO DAILY@1200
cholecalciferol (vitamin D3) 1,000 UNITS tablet
1,000 units PO DAILY@1200
liothyronine 5 MICROGRAM tablet
5 mcg PO DAILY
levothyroxine 25 MCG tablet
50 mcg PO DAILY
Eliquis 5 MG tablet
5 mg PO BID Qty: 60 0RF
cetirizine [Zyrtec] 5 MG tablet
5 mg PO DAILY
magnesium citrate 125 MG capsule
250 mg PO HS
nadolol 20 mg Tablet
20 mg PO DAILY
rosuvastatin [Crestor] 10 mg Tablet
10 mg PO HS
polyethylene glycol 3350 [Miralax] 17 gram Powder In Packet
17 g PO HS
Wegovy 0.25 mg/0.5 mL Pen Injector
0.25 mg SC QWEEK
ondansetron HCl 4 mg tablet
4 mg PO Q8H PRN (Reason: nausea and vomiting) Qty: 14 0RF
Referrals:
YANIRA CEDEÑO [Other]
Interventions
Interventions:
*Risk Screen - Suicide Last Done: 06/21/25 15:15
*General Assessment Last Done: 06/21/25 15:15
*Neglect/Abuse Screening Last Done: 06/21/25 15:15
*ED- Fall Risk Assessment Last Done: 06/21/25 15:15
*ED COVID-19 Vaccine History Last Done: 06/21/25 15:15
*ED Influenza Vaccine History Last Done: 06/21/25 15:15
FK-Tkw[facility]-Ybgilbcipx Assessment Last Done: 06/21/25 15:15
Discharge Date and Time
Print Language: FAROESE
[2025-06-21] MEDS: ZOFRAN 4 MG IV ×2 (15:14→21:08)
[2025-06-21] MEDS: LR 500 IV ×3 (15:15→18:23)
[2025-06-21 15:35] LABS: ALT (SGPT) 15 U/L (0-35); AST (SGOT) 19 U/L (14-36); Albumin 3.2 g/dl (3.5-5.0); Alkaline Phosphatase 56 U/L (38-126); Blood Urea Nitrogen 13 mg/dl (7-17); Calcium 9.0 mg/dl (8.4-10.2); Carbon Dioxide 24 mmol/L (22-30); Chloride 106 mmol/L (98-107); Glucose 102 mg/dl (70-99); Lipase 30 U/L (23-300); Potassium 3.9 mmol/L (3.5-5.1); Sodium 133 mmol/L (135-145); Total Protein 5.6 g/dl (6.3-8.2); eGFR > 60.00
[2025-06-21 15:46] LABS: Hematocrit 41.1 % (37.0-47.0); Hemoglobin 13.3 g/dL (12.0-16.0); Mean Corp Hgb Conc. 32.4 g/dL (33.0-37.0); Mean Corpuscular Volume 86.5 fL (81.0-99.0); Platelet Count 198 10^3/uL (130-400); Red Cell Dist. Width 13.6 % (11.5-14.5)
[2025-06-21 16:15] LABS: Absolute Neutrophils -Man Diff 1.3 10^3/uL (1.4-6.5)
[2025-06-21 16:16] LABS: Normal RBC Morphology Yes; Platelets Checked Yes; Total Cells Counted 100
--- NOTE | 2025-06-21 17:25 | HPS.HSE ---
Addendum entered and electronically signed by David Lynne MD 06/21/25 19:49:
This is an addendum to the H&P written by Annmarie Kramer on 06/21/2025. �Patient seen and examined independently with [facility] ADVISOR.
70-year-old female past medical history of gastric sleeve, cholecystectomy, hysterectomy, tummy tuck, multiple small partial bowel obstructions, atrial fibrillation on Eliquis, CAD presenting for Multiple episodes of vomiting with loose stools and
abdominal pain for 2 days after having Caesar salad with fishy smelling dressing. �Diffuse lower quadrant abdominal pain.
She came to the emergency room 2 days ago and was discharged home.
Today she had palpitation in her chest and chills. �No blood or mucus in the stool.
Vital signs show tachycardia up to 117.
Labs show sodium of 133. �Leukopenia of 2.6.
CT abdomen pelvis shows moderate small bowel ileus versus small bowel obstruction. �Moderate free fluid in the abdomen pelvis likely reactive.
Patient with likely gastroenteritis associated ileus versus small bowel obstruction. �N.p.o., IV fluids, stool studies pending. �Hold Eliquis. �General surgery consulted.
Original Note:
Family Physician
-
Family Physician: YANIRA CEDEÑO
Chief Complaint
-
abdominal pain, n/v/diarrhea
History of Present Illness
70-year-old female with past medical history significant for bariatric surgery (on GLP), multiple partial small bowel obstructions, multiple orthopedic surgeries, hysterectomy, atrial fibrillation, coronary artery disease, DVT presented to us with
abdominal pain associated with n,v,d since last Saturday night. As per the patient, she was in her usual state of health 2 days ago, she went out for lunch on Saturday, had Caesar salad with a fishy smelling dressing. She came home and felt a bit off
and started having multiple episode of vomiting and loose stools associated with abdominal pain since Saturday night. patient stated multiple episodes of loose watery stool and vomiting. patient not able to tolerate any oral intake. her last bowel
movement was last night. patient still has abdominal pain and vomiting. denied fever, chills, [place], dizzy or syncope. denied chest pain, sob. denied dysuria or hematuria.
She came to the ER on Saturday, blood work looked fine and after fluid resuscitation, Benadryl and ondansetron dose she felt fine and was discharged home.
Medical History
Past Medical History
Past Medical History: Reports Other
Additional Past Medical History:
hld, atrial fib, DVT, anxiety, migraine, hypothyroidism, GERD, depression, mitral regurgitation,
Past Surgical History: Reports Other
Additional Past Surgical History:
cardiac ablation, hysterectomy, abdominoplasty, left hip replacement, right hip replacement, cardiac ablation, lipomas removed wrist, knee, gastric sleeve surgery
Social History
Tobacco: Former Smoker
Alcohol: None
Drug: None
Living: With Family
Family History
Family History: Not pertinent
Allergies / Home Medications
Allergies reflects when Allergies were last updated in [facility].
Home Medications with original date entered in [facility]
Allergy/Medication List:
Allergies
Allergy/AdvReac Type Severity Reaction Status Date / Time
ibuprofen Allergy Hives, Verified 06/21/25 13:27
SWELLING
sulfamethoxazole Allergy Hives, Verified 06/21/25 13:27
SWELLING
Home Medications
escitalopram oxalate 20 mg tablet 10 mg PO HS 10/13/14
cholecalciferol (vitamin D3) 25 mcg (1,000 unit) tablet 1,000 units PO DAILY@1200 05/13/17
cyanocobalamin (vitamin B-12) 500 mcg tablet (Vitamin B-12) 1,000 mcg PO DAILY@1200 05/13/17
levothyroxine 25 mcg tablet 50 mcg PO DAILY 08/22/17
liothyronine 5 mcg tablet 5 mcg PO DAILY 08/22/17
apixaban 5 mg tablet (Eliquis) 5 mg PO BID ##60 01/19/18
cetirizine 5 mg tablet (Zyrtec) 5 mg PO DAILY 11/26/17
magnesium citrate 125 mg capsule 250 mg PO HS 11/26/17
nadolol 20 mg tablet 20 mg PO DAILY 12/10/23
polyethylene glycol 3350 17 gram oral powder packet (Miralax) 17 g PO HS 12/10/23
rosuvastatin 10 mg tablet 10 mg PO HS 12/10/23
semaglutide (weight loss) 0.25 mg/0.5 mL subcutaneous pen injector (Wegovy) 0.25 mg SC QWEEK 12/10/23
ondansetron HCl 4 mg tablet 4 mg PO Q8H PRN nausea and vomiting #14 tabs 06/20/25
Review of Systems
-
Constitutional: Reports No Symptoms
EENT: Reports No Symptoms
Respiratory: Reports No Symptoms
Cardiac: Reports No Symptoms
Abdomen/GI: Reports Abdominal Pain, Nausea, Vomiting and Diarrhea
: Reports No Symptoms
Musculoskeletal: Reports No Symptoms
Skin: Reports No Symptoms
Neurological: Reports No Symptoms
Endocrine: Reports No Symptoms
Hematologic/Lymphatic: Reports No Symptoms
Psych: Reports No Symptoms
Physical Exam
Vital Signs
Vital Signs
Temp Pulse Resp BP Pulse Ox
98.2 F 116 18 105/69 96
06/21/25 13:25 06/21/25 17:00 06/21/25 17:00 06/21/25 17:15 06/21/25 17:00
Physical Exam
General: Well Developed, Well Nourished and No Apparent Distress
HEENT: NormoCephalic, Moist mucous membranes and Atraumatic
Respiratory: Clear
Cardiac: S1/S2 and Regular Rhythm; No Murmur or Rub
GI: Soft, Normal Bowel Sounds and Tender; No Organomegaly
Rectal: Deferred by Provider
Musculoskeletal: No Clubbing, No Cyanosis and No Edema
Skin: No Rash
Neuro: AO x 3 and Nonfocal/grossly intact
Psych: Calm
Laboratory Results
-
06/21/25 15:05
06/21/25 15:05
Laboratory Results
Total Bilirubin 0.6 mg/dl (0.2-1.3) 06/21/25 15:05
AST 19 U/L (14-36) 06/21/25 15:05
ALT 15 U/L (0-35) 06/21/25 15:05
Alkaline Phosphatase 56 U/L (38-126) 06/21/25 15:05
Lipase 30 U/L (23-300) 06/21/25 15:05
Data Reviewed
-
CT Scan: Report Reviewed by me
Lab Data: Labs Reviewed by me
Impression/Plan
-
#small bowel obstruction vs gastroenteritis related ileus
-CT abdomen pelvis with Findings suggesting a moderate small bowel ileus versus small bowel obstruction. Limited evaluation without oral contrast. New Moderate free fluid in the abdomen and pelvis likely reactive. NewToo small to characterize
hypodense hepatic lesion likely small cyst or hemangioma. Stable Too small to characterize hypodense right renal lesion likely a benign cyst. Stable
- Keep manage patient n.p.o., IV fluids for hydration
- Dilaudid as needed for pain
- Zofran as needed for nausea vomiting
- Surgery consulted
# Paroxysmal A-fib
- EKG with sinus tachycardia
- Hold Eliquis
- Nadolol continue
# Hyperlipidemia
- Crestor continue
# Anxiety
- Escitalopram, bupropion continue
# Hypothyroidism
- Levothyroxine continue
- Liothyronine continued
# DVT prophylaxis
- SCDs
# CODE STATUS
- Full code
--- NOTE | 2025-06-21 17:29 | EDRN ---
Dr. Maxwell in room w/ pt at this time.
--- NOTE | 2025-06-21 17:43 | EDRN ---
Dr. Lynne in room w/pt.
--- NOTE | 2025-06-21 18:17 | EDRN ---
PT TEL admit and placed on quality assurance monitor body at this time.
[2025-06-21] MEDS: DILAUDID 0.5 MG IV (18:32)
[2025-06-21] MEDS: FLUSH (NSS) 1 FLUSH IV (18:36)
--- NOTE | 2025-06-21 20:30 | PTCARENOTE ---
Pt received from ED via stretcher at 1999. Pt pleasant, AAOx3, VSS, and able to ambulate into room with stand by assistance. Pt receptive to room and call cruz. Pt bed in lowest position and call cruz within reach. Pt educated on importance of call
cruz usage, pt relays understanding and cooperation. Will continue with current plan of care.
[2025-06-21] MEDS: LEXAPRO 10 MG PO (21:08)
[2025-06-21] MEDS: NSS 1000 IV (21:08)
[2025-06-21] MEDS: CORGARD 20 MG PO (21:08)
[2025-06-21] MEDS: CRESTOR 10 MG PO (21:09)
[2025-06-22 03:00] VITALS: BP 114/69
[2025-06-22] MEDS: ZOFRAN 4 MG IV ×3 (03:34→16:52)
[2025-06-22] MEDS: SYNTHROID 50 MCG PO (05:31)
[2025-06-22 07:00] VITALS: BP 107/66
--- NOTE | 2025-06-22 07:30 | W.PN.HOSP.TC ---
Today's Communication/Plan
-
See plan
Assessment / Plan
Assessment / Plan
Physical Exam
General: Well Developed, Well Nourished and No Apparent Distress
HEENT: NormoCephalic, Moist mucous membranes and Atraumatic
Respiratory: Clear
Cardiac: S1/S2 and Regular Rhythm; No Murmur or Rub
GI: Soft, Normal Bowel Sounds and Tender; No Organomegaly
Rectal: Deferred by Provider
Musculoskeletal: No Clubbing, No Cyanosis and No Edema
Skin: No Rash
Neuro: AO x 3 and Nonfocal/grossly intact
Psych: Calm
Assessment/Plan
70-year-old female with past medical history of gastric sleeve, cholecystectomy, hysterectomy, tummy tuck, multiple small partial bowel obstructions, atrial fibrillation on Eliquis, DVT, CAD and back surgeries (in [place]) presented for multiple
episodes of vomiting with loose stools and abdominal pain for 2 days after having Caesar salad with fishy smelling dressing. Diffuse lower quadrant abdominal pain. She came to the emergency room on 06/19/25 and was discharged home. On 06/21/25,
patient had palpitation in her chest and chills. No blood or mucus in the stool. Vital signs show tachycardia up to 117. Initial labs showed sodium of 133. Leukopenia of 2.6. CT abdomen pelvis shows moderate small bowel ileus versus small bowel
obstruction. Moderate free fluid in the abdomen pelvis likely reactive.
Patient with likely gastroenteritis associated ileus versus small bowel obstruction. Initial orders included N.P.O., IV fluids and stool studies. Eliquis initially held. General surgery consulted.
#small bowel obstruction vs gastroenteritis related ileus
-CT abdomen pelvis with Findings suggesting a moderate small bowel ileus versus small bowel obstruction. Limited evaluation without oral contrast. New Moderate free fluid in the abdomen and pelvis likely reactive. NewToo small to characterize
hypodense hepatic lesion likely small cyst or hemangioma. Stable Too small to characterize hypodense right renal lesion likely a benign cyst. Stable
- Keep manage patient n.p.o., IV fluids for hydration
- Dilaudid as needed for pain
- Zofran as needed for nausea vomiting
- Surgery consulted -- no plans for surgical intervention at this time
# Paroxysmal A-fib
- EKG with sinus tachycardia
- Hold Eliquis
- Nadolol continue
#History of DVT?
-Avoid SCDs for now
-Start Lovenox
-Check lower extremity ultrasound for DVTs, and if no DVT, then can do SCDs
# Hyperlipidemia
- Crestor continue
# Anxiety
- Escitalopram, bupropion continue
# Hypothyroidism
- Levothyroxine continue
- Liothyronine continued
#History of Back Surgeries in [place]
-Patient does not like opioids, she would like Tylenol for pain -- Tylenol has been ordered
#Mild neutropenia
-Neutropenic Precautions
# DVT prophylaxis: Lovenox
# CODE STATUS
- Full code
Anticipated Discharge: 24 - 48 hours
Subjective/Interval History
-
Date of Service: June 22, 2025
Patient was seen and examined. She reported intermittent chronic back pain, history of back surgeries, still with abdominal tenderness and pain, no other new symptoms or complaints.
Objective Data
-
Labs:
Laboratory Results
06/22/25
07:17
WBC Pending
Hgb Pending
Hct Pending
Plt Count Pending
Sodium Pending
Potassium Pending
Chloride Pending
Carbon Dioxide Pending
BUN Pending
Creatinine Pending
Glucose Pending
Calcium Pending
Vital Signs:
Vital Signs
Temp Pulse Resp BP Pulse Ox
99.1 F 93 18 114/69 96
06/22/25 03:00 06/22/25 03:00 06/22/25 03:00 06/22/25 03:00 06/22/25 03:00
I&O
06/21/25 06/22/25 06/23/25
06:59 06:59 06:59
Intake Total 1010 / 1010
Balance 1010 / 1010
[2025-06-22 07:40] LABS: Hematocrit 37.5 % (37.0-47.0); Hemoglobin 11.6 g/dL (12.0-16.0); Mean Corp Hgb Conc. 30.9 g/dL (33.0-37.0); Mean Corpuscular Volume 90.8 fL (81.0-99.0); Platelet Count 178 10^3/uL (130-400); Red Cell Dist. Width 14.0 % (11.5-14.5)
[2025-06-22] MEDS: WELLBUTRIN XL (24 hour extended release) 150 MG PO (07:54)
[2025-06-22] MEDS: CYTOMEL 5 MICROGRAM PO (07:54)
[2025-06-22] MEDS: NEURONTIN 300 MG PO (07:54)
[2025-06-22] MEDS: NSS 1000 IV (07:59)
[2025-06-22 08:31] LABS: Blood Urea Nitrogen 10 mg/dl (7-17); Calcium 8.4 mg/dl (8.4-10.2); Carbon Dioxide 18 mmol/L (22-30); Chloride 109 mmol/L (98-107); Estimated Creatinine Clearance 72 ml/min; Glucose 81 mg/dl (70-99); Sodium 136 mmol/L (135-145); eGFR > 60.00
[2025-06-22 08:48] LABS: Potassium 3.9 mmol/L (3.5-5.1)
--- NOTE | 2025-06-22 09:38 | CON.GS ---
Medical History
-
Chief Complaint: Abdominal pain
History of Present Illness:
Patient is a 70 yo F with with a PMH of obesity s/p laparoscopic gastric sleeve at [facility] (on GLP-1 inhibitor for 3+ years), depression/anxiety, GERD, hypothyroid, HLD, A-fib s/p ablation (on Eliquis, LD 06/21), DVT, s/p multiple
orthopedic procedures, s/p hysterectomy, and s/p abdominoplasty who presents with persistent crampy abdominal pain. Ms. Leon states that her symptoms began on Saturday after having a Caesar salad. She reports crampy lower abdominal discomfort.
Episodes of nausea and vomiting. Watery diarrhea, last episode on Saturday. She continues to pass flatus. Currently she denies any nausea or vomiting. No fevers or chills. She has not been hospitalized for a bowel obstruction in years. Upon
further prompting she does report intermittent crampy abdominal pains at home, though no clear/reported association with fiber food intake.
She follows regularly with her bariatric surgeon at [facility]. She has been on her GLP-1 inhibitor for years without any issues. No clear association of the onset of her symptoms with GLP-1 use. She does report a chronic history of
constipation dating back to her teenage years. She is currently on MiraLAX.
Past Medical History
Past Medical History: Arrhythmias (Afib), GERD, Hypercholesterolemia, Hypothyroidism and Psychiatric (Depression/anxiety)
Past Surgical History: Bariatric (Lap sleeve gastrectomy), Gynecological (Hysterectomy), Orthopedic (Bl THR) and Other (Abdominoplasty)
Social History
Tobacco: Former Smoker
Alcohol: None
Drug: None
Family History
Family History: Reviewed & Not Pertinent
Allergies / Home Medications
Allergy/AdvReac Type Severity Reaction Status Date / Time
ibuprofen Allergy Hives, Verified 06/21/25 13:27
SWELLING
sulfamethoxazole Allergy Hives, Verified 06/21/25 13:27
SWELLING
�Medication �Instructions �Recorded �Confirmed �Type
cholecalciferol (vitamin D3) 25 1,000 units PO DAILY@1200 05/13/17 06/21/25 History
mcg (1,000 unit) tablet Supplement
cyanocobalamin (vitamin B-12) 500 1,000 mcg PO DAILY@1200 Supplement 05/13/17 06/21/25 History
mcg tablet (Vitamin B-12)
liothyronine 5 mcg tablet 5 mcg PO DAILY Thyroid 08/22/17 06/21/25 History
apixaban 5 mg tablet (Eliquis) 5 mg PO BID ##60 08/23/17 06/21/25 Rx
magnesium citrate 125 mg capsule 250 mg PO HS Laxative 11/26/17 06/21/25 History
nadolol 20 mg tablet 20 mg PO QPM Heart 12/10/23 06/21/25 History
Disease/Condition
polyethylene glycol 3350 17 gram 17 g PO HS Constipation 12/10/23 06/21/25 History
oral powder packet (Miralax)
rosuvastatin 10 mg tablet 10 mg PO HS High Cholesterol 12/10/23 06/21/25 History
bupropion HCl 150 mg 24 hr tablet, 150 mg PO DAILY Mental 06/21/25 06/21/25 History
extended release (Wellbutrin XL) Health/Anxiety
escitalopram oxalate 10 mg tablet 10 mg PO QPM Mental Health/Anxiety 06/21/25 06/21/25 History
(Lexapro)
furosemide 20 mg tablet (Lasix) 20 mg PO DAILY Fluid 06/21/25 06/21/25 History
Retention/Swelling
gabapentin 300 mg capsule 300 mg PO DAILY Neurological 06/21/25 06/21/25 History
Condition
levothyroxine 50 mcg tablet 50 mcg PO DAILY Thyroid 06/21/25 06/21/25 History
(Synthroid)
ondansetron HCl 4 mg tablet 4 mg PO Q8HPRN PRN nausea and 06/21/25 06/21/25 History
vomiting
semaglutide (weight loss) 2.4 2.4 mg SC FR Weight Gain 06/21/25 06/21/25 History
mg/0.75 mL subcutaneous pen
injector (Wegovy)
Review of Systems
-
A 10 point review of systems was completed, and was negative except as per HPI.
Physical Exam
Vital Signs
Temp Pulse Resp BP Pulse Ox
98.6 F 93 18 107/66 95
06/22/25 07:00 06/22/25 07:00 06/22/25 07:00 06/22/25 07:00 06/22/25 07:00
06/21/25 06/22/25 06/23/25
06:59 06:59 06:59
Actual Weight 71.271 kg
Body Mass Index (BMI) 25.4
Lab Results
06/22/25 07:17
06/22/25 07:17
WBC 2.2 10^3/uL (4.8-10.8) L* 06/22/25 07:17
Hgb 11.6 g/dL (12.0-16.0) L 06/22/25 07:17
Hct 37.5 % (37.0-47.0) 06/22/25 07:17
Plt Count 178 10^3/uL (130-400) 06/22/25 07:17
Physical Exam
General: Well Developed, Well Nourished and No Apparent Distress
HEENT: Normocephalic and Anicteric
Respiratory: Non Labored Respirations
Cardiac: Regular Rhythm
GI: Soft, Tender (Mild lower abdomen bilaterally), Distended (Minimal, no tympany), Incisions (Well healed) and Other (Non-peritoneal)
Musculoskeletal: No Edema
Skin: Warm and Dry
Neuro: Nonfocal/Grossly Intact
Data Reviewed
-
CT Scan: Image Personally Visualized and interpreted and Report Reviewed by me
Labs: Labs Reviewed by me
Old Records: Reviewed
Assessment / Plan
-
Patient is a 70 yo F p/w partial SBO likely secondary to adhesions, possible component of dietary indiscretion
The natural history and pathophysiology of bowel obstructions was discussed. CT scan imaging was reviewed. Likely related to adhesions given her multiple prior operations, as well as a combination of dietary indiscretion with the episode starting
after a Caesar salad. Sounds as though she has had more mild partial obstructions with fiber food intake in the past. No CT scan imaging concerning for bowel ischemia or perforation. Currently passing flatus as well as some watery stool. No
indication or plan for more emergent operation. Stool studies and TSH ordered for completeness and to rule out alternative causes.
Recommended plan for a SBFT for diagnostic and therapeutic purposes. Dietary education was provided. All questions answered.
-- No plans for surgical intervention at this time
-- SBFT
-- Dietary education provided
-- Stools studies, TSH
-- Correct lytes, minimize narcotics, OOB/ambulate
[2025-06-22] MEDS: TYLENOL 1000 MG PO ×2 (09:46→17:03)
[2025-06-22 10:54] VITALS: BP 131/80
[2025-06-22] MEDS: VITAMIN B-12 1000 MCG PO (11:02)
[2025-06-22] MEDS: VITAMIN D3 (cholecalciferol) 25 MCG PO (11:02)
--- NOTE | 2025-06-22 11:04 | CM ---
Patient seen bedside w/ daughters, initial assessment completed. Patient is a 70-year-old female with past medical history significant for bariatric surgery (on GLP), multiple partial small bowel obstructions, multiple orthopedic surgeries,
hysterectomy, atrial fibrillation, coronary artery disease, DVT presented to us with abdominal pain associated with n,v,d.
Patient resides w/ spouse in a [place] [employer], 9 steps to enter. Patient is independent in all areas. No DME, patient stated she use to have a CPAP machine but no longer uses anymore. No SNF hx, home health hx following hip replacements years ago.
Patient completed OP PT about a month ago.
Address, point of contact and insurance verified
PCP: Kira Root
Pharmacy: [facility]
Patient asking if her daughter can be added as a secondary contact. Update to admissions
Plan: Home, no needs anticipated
[2025-06-22] MEDS: DILAUDID 0.5 MG IV (12:36)
[2025-06-22 15:10] VITALS: BP 133/76
[2025-06-22] MEDS: LR 1000 IV (15:57)
[2025-06-22] MEDS: LEXAPRO 10 MG PO (17:03)
[2025-06-22] MEDS: LOVENOX 40 MG SC (17:05)
[2025-06-22] MEDS: CORGARD 20 MG PO (17:12)
[2025-06-22 19:28] VITALS: BP 115/63
[2025-06-22] MEDS: CRESTOR 10 MG PO (21:14)
[2025-06-22 23:00] VITALS: BP 103/56
[2025-06-23] MEDS: TYLENOL 1000 MG PO ×3 (00:55→17:11)
--- NOTE | 2025-06-23 03:00 | DOWNTIME ---
There was a [employer] Downtime on 06/23/2025 from 0100 to 06/23/2025 at 0255. Downtime documentation of patient's care, including medication administrations, has been reconciled in the electronic record per guidelines. Refer to the
patient's paper chart under the miscellaneous tab to see printed paper medication records and downtime forms.
[2025-06-23 03:17] VITALS: BP 99/60
[2025-06-23] MEDS: LR 1000 IV ×2 (05:03→17:16)
[2025-06-23] MEDS: SYNTHROID 50 MCG PO (05:03)
[2025-06-23 07:50] VITALS: BP 108/56
[2025-06-23 07:55] LABS: Hematocrit 35.1 % (37.0-47.0); Hemoglobin 10.8 g/dL (12.0-16.0); Mean Corp Hgb Conc. 30.8 g/dL (33.0-37.0); Mean Corpuscular Volume 89.5 fL (81.0-99.0); Platelet Count 176 10^3/uL (130-400); Red Cell Dist. Width 14.1 % (11.5-14.5)
[2025-06-23 08:11] LABS: Blood Urea Nitrogen 9 mg/dl (7-17); Calcium 9.0 mg/dl (8.4-10.2); Carbon Dioxide 23 mmol/L (22-30); Chloride 110 mmol/L (98-107); Estimated Creatinine Clearance 72 ml/min; Glucose 83 mg/dl (70-99); Magnesium 2.1 mg/dl (1.6-2.3); Potassium 3.8 mmol/L (3.5-5.1); Sodium 137 mmol/L (135-145); eGFR > 60.00
[2025-06-23] MEDS: CYTOMEL 5 MICROGRAM PO (08:27)
[2025-06-23] MEDS: WELLBUTRIN XL (24 hour extended release) 150 MG PO (08:27)
[2025-06-23] MEDS: NEURONTIN 300 MG PO (08:27)
--- NOTE | 2025-06-23 09:04 | W.PN.HOSP.TC ---
Today's Communication/Plan
-
Continue Heparin Drip
Clear Liquids Diet
See plan
Assessment / Plan
Assessment / Plan
Physical Exam
General: Well Developed, Well Nourished and No Apparent Distress
HEENT: NormoCephalic, Moist mucous membranes and Atraumatic
Respiratory: Clear
Cardiac: S1/S2 and Regular Rhythm
GI: Soft, Normal Bowel Sounds and Tender
Musculoskeletal: No Cyanosis and No Edema
Skin: Warm. Dry.
Neuro: AO x 3 and Nonfocal/grossly intact
Psych: Calm
Assessment/Plan
70-year-old female with past medical history of gastric sleeve, cholecystectomy, hysterectomy, tummy tuck, multiple small partial bowel obstructions, atrial fibrillation on Eliquis, DVT, CAD and back surgeries (in [place]) presented for multiple
episodes of vomiting with loose stools and abdominal pain for 2 days after having Caesar salad with fishy smelling dressing. Diffuse lower quadrant abdominal pain. She came to the emergency room on 06/19/25 and was discharged home. On 06/21/25,
patient had palpitation in her chest and chills. No blood or mucus in the stool. Vital signs show tachycardia up to 117. Initial labs showed sodium of 133. Leukopenia of 2.6. CT abdomen pelvis shows moderate small bowel ileus versus small bowel
obstruction. Moderate free fluid in the abdomen pelvis likely reactive.
Patient with likely gastroenteritis associated ileus versus small bowel obstruction. Initial orders included N.P.O., IV fluids and stool studies. Eliquis initially held. General surgery consulted.
#small bowel obstruction vs gastroenteritis related ileus
-CT abdomen pelvis with Findings suggesting a moderate small bowel ileus versus small bowel obstruction. Limited evaluation without oral contrast. New Moderate free fluid in the abdomen and pelvis likely reactive. NewToo small to characterize
hypodense hepatic lesion likely small cyst or hemangioma. Stable Too small to characterize hypodense right renal lesion likely a benign cyst. Stable
- Per surgery: SBFT with roughly 2:40 transit time, f/u XR improved with all contrast in colon, some mildly dilated sb loops remain
- Advance diet to Clear Liquids Diet today, okay to continue PO medications, if doing well, then Full Liquids Diet tomorrow
- Dilaudid as needed for pain
- Zofran as needed for nausea vomiting
- Surgery consulted -- no plans for surgical intervention at this time
#Leukopenia
-Asked on-call oncologist about this incidental finding, and he said nothing to do inpatient.
-Patient should discuss with PCP post discharge and repeat labs outpatient in 1-2 months
# Paroxysmal A-fib
- EKG with sinus tachycardia
- Hold Eliquis at least until tomorrow, as per surgeon, need to make sure can tolerate clear liquids diet
- Start Heparin Drip in lieu of Eliquis for stroke prevention from A-Fib
- Nadolol continue
#History of DVT ~2011, provoked after multiple hip surgeries
-Lower extremity ultrasound 06/22/25 was negative for DVTs
#Hyponatremia
-Resolved
# Hyperlipidemia
- Crestor continue
# Anxiety
- Escitalopram, bupropion continue
# Hypothyroidism
- Levothyroxine continue
- Liothyronine continued
#History of Back Surgeries in [place]
-Patient does not like opioids, she would like Tylenol for pain -- Tylenol has been ordered
#Mild neutropenia
-Neutropenic Precautions
# DVT prophylaxis: SCDs. Heparin Drip.
# CODE STATUS
- Full code
Anticipated Discharge: 24 - 48 hours
Subjective/Interval History
-
Date of Service: June 23, 2025
Patient was seen and examined. She had bowel movements overnight. She is feeling much better today and wants to eat.
Objective Data
-
Labs:
Laboratory Results
06/23/25
07:16
WBC 2.4 L*
Hgb 10.8 L
Hct 35.1 L
Plt Count 176
Sodium 137
Potassium 3.8
Chloride 110 H
Carbon Dioxide 23
BUN 9
Creatinine 0.7
Glucose 83
Calcium 9.0
Vital Signs:
Vital Signs
Temp Pulse Resp BP Pulse Ox
98.6 F 77 20 108/56 99
06/23/25 07:50 06/23/25 07:50 06/23/25 07:50 06/23/25 07:50 06/23/25 07:50
I&O
06/22/25 06/23/25 06/24/25
06:59 06:59 06:59
Intake Total 1010 / 1010 900 / 900
Balance 1010 / 1010 900 / 900
[2025-06-23 10:26] LABS: APTT 30.6 Sec (23.4-35.0)
[2025-06-23 10:29] LABS: Hematocrit 31.8 % (37.0-47.0); Hemoglobin 10.4 g/dL (12.0-16.0); Mean Corp Hgb Conc. 32.7 g/dL (33.0-37.0); Mean Corpuscular Volume 86.4 fL (81.0-99.0); Platelet Count 173 10^3/uL (130-400); Red Cell Dist. Width 13.9 % (11.5-14.5)
--- NOTE | 2025-06-23 10:39 | W.PN.GS2 ---
Today's Communication / Plan
-
Trial cld
Assessment / Plan
-
Patient is a 70 yo F p/w partial SBO likely secondary to adhesions, possible component of dietary indiscretion
CT scan imaging was reviewed. Likely related to adhesions given her multiple prior operations, as well as a combination of dietary indiscretion with the episode starting after a Caesar salad. No CT scan imaging concerning for bowel ischemia or
perforation. Currently passing flatus as well as multiple liquid stools. No indication or plan for more emergent operation. Stool studies and TSH ordered for completeness and to rule out alternative causes.
SBFT with roughly 2:40 transit time, f/u XR improved with all contrast in colon, some mildly dilated sb loops remain
Plan:
Trial CLD
Serial exams
Monitor for bowel function
DVT ppx
All other care as per primary team
Subjective Data
-
Date of Service: June 23, 2025
AFVSS, passing flatus and liquid stools, denies n/v, reports abd pain improved
Objective Data
-
Intake and Output
06/22/25 06/23/25 06/24/25
06:59 06:59 06:59
Intake Total 1010 / 1010 900 / 900
Balance 1010 / 1010 900 / 900
Intake:
Oral fluids 50 / 50
IV fluids (Total) 960 / 960 900 / 900
Other:
Number of approximated MODERATE 3 2
amounts of urine
Number of unmeasured liquid
stools
Rectum 1
Vital Signs
Temp Pulse Resp BP Pulse Ox
98.6 F 77 20 108/56 99
06/23/25 07:50 06/23/25 07:50 06/23/25 07:50 06/23/25 07:50 06/23/25 07:50
Lab Results
06/23/25 09:45
06/23/25 07:16
Calcium 9.0 mg/dl (8.4-10.2) 06/23/25 07:16
Magnesium 2.1 mg/dl (1.6-2.3) 06/23/25 07:16
Total Bilirubin 0.6 mg/dl (0.2-1.3) 06/21/25 15:05
AST 19 U/L (14-36) 06/21/25 15:05
ALT 15 U/L (0-35) 06/21/25 15:05
Alkaline Phosphatase 56 U/L (38-126) 06/21/25 15:05
Total Protein 5.6 g/dl (6.3-8.2) L 06/21/25 15:05
Albumin 3.2 g/dl (3.5-5.0) L 06/21/25 15:05
Physical Exam
-
Gen: NAD
Abd: soft, mild distention, nt
Patient has a caro catheter: No
Patient has a central line: No
[2025-06-23] MEDS: VITAMIN D3 (cholecalciferol) 25 MCG PO (11:10)
[2025-06-23] MEDS: VITAMIN B-12 1000 MCG PO (11:11)
[2025-06-23] MEDS: HEPARIN 25000 UNITS/250 ML IV (11:11)
[2025-06-23 11:32] VITALS: BP 100/57
--- NOTE | 2025-06-23 12:12 | PN.CDI ---
CDI
- -
CDI:
Physician Documentation Request
Admit Date: 06/21/25 18:19
Dear Doctor Aaron,
Please review the following and provide your response in the progress notes.
Clinical Indicators:
Pt admitted with partial SBO likely secondary to adhesions
Documented per Addendum to H&P, ' Labs show sodium of 133..'
Progress note 06/22, ' Initial labs showed sodium of 133. ...'
Pt did get LR IVFs
Based on the above, could you clarify in the progress notes, the appropriate diagnosis, if significant, that supports the above abnormalities and additional evaluation, monitoring and/or treatment rendered:
Hyponatremia
Low sodium only
Other ( please specify)
Use of terms such as suspected, likely, concern for, or probable (associated with a specific diagnosis that is being evaluated, monitored, or treated as if it exists) are acceptable and can be coded in the inpatient setting, when documented at the
time of discharge.
Thank you,
Alyssa Gomez RN
CDI Specialist
[facility]
Please use your independent medical judgment in providing your response.
[2025-06-23 15:31] VITALS: BP 108/64
[2025-06-23] MEDS: LEXAPRO 10 MG PO (17:11)
[2025-06-23] MEDS: CORGARD 20 MG PO (17:11)
[2025-06-23 18:01] LABS: APTT 74.4 Sec (23.4-35.0)
[2025-06-23 19:19] VITALS: BP 111/68
[2025-06-23] MEDS: CRESTOR 10 MG PO (21:47)
[2025-06-23 23:02] VITALS: BP 134/70
[2025-06-24 00:24] LABS: APTT 69.9 Sec (23.4-35.0)
[2025-06-24] MEDS: TYLENOL 1000 MG PO ×2 (02:07→09:42)
[2025-06-24 03:04] VITALS: BP 146/81
[2025-06-24] MEDS: SYNTHROID 50 MCG PO (05:28)
[2025-06-24 07:00] VITALS: BP 139/85
[2025-06-24 07:23] LABS: APTT 85.4 Sec (23.4-35.0)
[2025-06-24 07:34] LABS: Hematocrit 31.1 % (37.0-47.0); Hemoglobin 10.4 g/dL (12.0-16.0); Mean Corp Hgb Conc. 33.4 g/dL (33.0-37.0); Mean Corpuscular Volume 84.7 fL (81.0-99.0); Platelet Count 171 10^3/uL (130-400); Red Cell Dist. Width 13.8 % (11.5-14.5)
[2025-06-24] MEDS: CYTOMEL 5 MICROGRAM PO (07:46)
[2025-06-24] MEDS: NEURONTIN 300 MG PO (07:46)
[2025-06-24] MEDS: WELLBUTRIN XL (24 hour extended release) 150 MG PO (07:46)
[2025-06-24 07:52] LABS: Blood Urea Nitrogen 4 mg/dl (7-17); Calcium 8.6 mg/dl (8.4-10.2); Carbon Dioxide 28 mmol/L (22-30); Chloride 106 mmol/L (98-107); Estimated Creatinine Clearance 84 ml/min; Glucose 99 mg/dl (70-99); Potassium 3.6 mmol/L (3.5-5.1); Sodium 131 mmol/L (135-145); eGFR > 60.00
--- NOTE | 2025-06-24 08:44 | W.PN.GS2 ---
Today's Communication / Plan
-
`
Assessment / Plan
-
Assessment:70 yo F p/w partial SBO likely secondary to adhesions, possible component of dietary indiscretion
SBFT 06/22 with roughly 2:40 transit time, f/u XR improved with all contrast in colon, some mildly dilated sb loops remain
Clinically improving tolerating clear liquid diet
Plan: Full liquids today; low residue this evening
If continues to tolerate dietary advancement discharge in the next 24 hours
Subjective Data
-
Date of Service: June 24, 2025
Patient seen and examined.
Bowel movements less frequent after initial multiple large loose stools following small bowel contrast study
Mild colicky discomfort no significant pain. Distention improved bloated.
No nausea tolerating clear liquids
Objective Data
-
Intake and Output
06/23/25 06/24/25 06/25/25
06:59 06:59 06:59
Intake Total 900 / 900 3250 / 3250
Balance 900 / 900 3250 / 3250
Intake:
Oral fluids 3120 / 3120
IV fluids (Total) 900 / 900
IV piggybacks 130 / 130
Other:
Number of approximated MODERATE 2 3
amounts of urine
Number of unmeasured liquid
stools
Rectum 1
Vital Signs
Temp Pulse Resp BP Pulse Ox
98.2 F 84 16 139/85 98
06/24/25 07:00 06/24/25 07:00 06/24/25 07:00 06/24/25 07:00 06/24/25 07:00
Lab Results
06/24/25 07:01
06/24/25 07:01
Calcium 8.6 mg/dl (8.4-10.2) 06/24/25 07:01
Magnesium 2.1 mg/dl (1.6-2.3) 06/23/25 07:16
Total Bilirubin 0.6 mg/dl (0.2-1.3) 06/21/25 15:05
AST 19 U/L (14-36) 06/21/25 15:05
ALT 15 U/L (0-35) 06/21/25 15:05
Alkaline Phosphatase 56 U/L (38-126) 06/21/25 15:05
Total Protein 5.6 g/dl (6.3-8.2) L 06/21/25 15:05
Albumin 3.2 g/dl (3.5-5.0) L 06/21/25 15:05
Physical Exam
-
NAD AAO x 3
ABD: Soft, not distended but mild fullness. Slight tenderness on palpation. No rebound rigidity or guarding
[2025-06-24] MEDS: HEPARIN 25000 UNITS/250 ML IV (09:43)
[2025-06-24 11:05] VITALS: BP 132/74
--- NOTE | 2025-06-24 11:40 | CM ---
Addendum entered by Anel Oakley 06/24/25 14:03:
D/c today
Original Note:
Chart reviewed.
Full liquids today; low residue this evening
Potential d/c tomorrow if tolerates diet advancement
No CM needs at this time
Plan: Home, no needs
[2025-06-24] MEDS: VITAMIN D3 (cholecalciferol) 25 MCG PO (11:47)
[2025-06-24] MEDS: VITAMIN B-12 1000 MCG PO (11:48)
--- NOTE | 2025-06-24 12:03 | W.PN.HOSP.TC ---
Today's Communication/Plan
-
Discharge today
Assessment / Plan
Assessment / Plan
Physical Exam
General: Well Developed, Well Nourished and No Apparent Distress
HEENT: NormoCephalic, Moist mucous membranes and Atraumatic
Respiratory: Clear
Cardiac: S1/S2 and Regular Rhythm
GI: Soft, Normal Bowel Sounds and Tender
Musculoskeletal: No Cyanosis and No Edema
Skin: Warm. Dry.
Neuro: AO x 3 and Nonfocal/grossly intact
Psych: Calm
Assessment/Plan
70-year-old female with past medical history of gastric sleeve, cholecystectomy, hysterectomy, tummy tuck, multiple small partial bowel obstructions, atrial fibrillation on Eliquis, DVT, CAD and back surgeries (in [place]) presented for multiple
episodes of vomiting with loose stools and abdominal pain for 2 days after having Caesar salad with fishy smelling dressing. Diffuse lower quadrant abdominal pain. She came to the emergency room on 06/19/25 and was discharged home. On 06/21/25,
patient had palpitation in her chest and chills. No blood or mucus in the stool. Vital signs show tachycardia up to 117. Initial labs showed sodium of 133. Leukopenia of 2.6. CT abdomen pelvis shows moderate small bowel ileus versus small bowel
obstruction. Moderate free fluid in the abdomen pelvis likely reactive.
Patient with likely gastroenteritis associated ileus versus small bowel obstruction. Initial orders included N.P.O., IV fluids and stool studies. Eliquis initially held. General surgery consulted.
#Partial Small Bowel Obstruction, likely secondary to adhesions, possible component of dietary indiscretion
-CT abdomen pelvis with Findings suggesting a moderate small bowel ileus versus small bowel obstruction. Limited evaluation without oral contrast. New Moderate free fluid in the abdomen and pelvis likely reactive. NewToo small to characterize
hypodense hepatic lesion likely small cyst or hemangioma. Stable Too small to characterize hypodense right renal lesion likely a benign cyst. Stable
- SBFT noted
- Advance diet to Full Liquids Diet, and then Low Residue today, okay to continue PO medications
- Not needing Dilaudid or Zofran at this time
- Surgery consulted -- no plans for surgical intervention at this time -- I communicated today with Dr. Vences who said okay to discharge patient today, from his standpoint
#Leukopenia
-Asked on-call oncologist about this incidental finding, and he said nothing to do inpatient.
-Patient should discuss with PCP post discharge and repeat labs outpatient in 1-2 months
# Paroxysmal A-fib
- EKG with sinus tachycardia
- Started Heparin Drip in lieu of Eliquis for stroke prevention from A-Fib
- On discharge, resume Eliquis
- Nadolol continue
#History of DVT ~2011, provoked after multiple hip surgeries
-Lower extremity ultrasound 06/22/25 was negative for DVTs
#Hyponatremia
-PO FR on discharge
-Recheck BMP outpatient
# Hyperlipidemia
- Crestor continue
# Anxiety
- Escitalopram, bupropion continue
# Hypothyroidism
- Levothyroxine continued
- Liothyronine continued
#History of Back Surgeries in [place]
-Patient does not like opioids, she would like Tylenol for pain -- Tylenol had been ordered
#Mild neutropenia
-Neutropenic Precautions
# DVT prophylaxis: SCDs. Heparin Drip.
# CODE STATUS
- Full code
More than 30 minutes spent in discharge including
Final examination of the patient
Summarizing hospital stay
Instructions for continuing care to all relevant caregivers
Preparation of discharge records, prescriptions, and referral forms
Total time spent (in minutes): 41
Anticipated Discharge: Today
Subjective/Interval History
-
Date of Service: June 24, 2025
Patient was seen and examined. She reported feeling much better today, denied any nausea, vomiting; she is also having bowel movements and it tolerating her diet.
Objective Data
-
Labs:
Laboratory Results
06/24/25 06/24/25 06/24/25
00:03 07:01 13:30
WBC 3.0 L
Hgb 10.4 L
Hct 31.1 L
Plt Count 171
APTT 69.9 H 85.4 H Pending
Sodium 131 L
Potassium 3.6
Chloride 106
Carbon Dioxide 28
BUN 4 L
Creatinine 0.6
Glucose 99
Calcium 8.6
Vital Signs:
Vital Signs
Temp Pulse Resp BP Pulse Ox
97.8 F 78 18 132/74 99
06/24/25 11:05 06/24/25 11:05 06/24/25 11:05 06/24/25 11:05 06/24/25 11:05
I&O
06/23/25 06/24/25 06/25/25
06:59 06:59 06:59
Intake Total 900 / 900 3250 / 3250
Balance 900 / 900 3250 / 3250
[2025-06-24 13:42] LABS: APTT 104.7 Sec (23.4-35.0)
== END 2025-06-24 15:28 | disposition home or self-care (01) | DRG 389 ==
LOC: 4 WEST ACU 18:19
PROVIDERS: Registered Nurse; ADMITTING PHYSICIAN Hospitalist; ATTENDING PHYSICIAN Hospitalist; CONSULT PHYSICIAN Surgery; EMERGENCY PHYSICIAN Emergency Medicine; FAMILY PHYSICIAN Nurse Practitioner Adult Health
DX: K56.51 Intestinal adhesions [bands], with partial obstruction (principal); E87.1 Hypo-osmolality and hyponatremia; Z87.891 Personal history of nicotine dependence; K56.7 Ileus, unspecified; I48.0 Paroxysmal atrial fibrillation; F41.9 Anxiety disorder, unspecified; E03.9 Hypothyroidism, unspecified; K52.9 Noninfective gastroenteritis and colitis, unspecified; D70.9 Neutropenia, unspecified; Z79.01 Long term (current) use of anticoagulants
CPT/HCPCS: 74018; 74177; 74250; 80048; 80053; 83690; 83735; 84443; 85025; 85027; 85730; 87045; 87046; 87324; 87427; 87449; 89055; 93005; 93970; 96361; 96374; 99285; Q9967